=== PATIENT | female | born 1970 ===

== ENCOUNTER 2020-01-11 11:12 | Emergency (ER) | payer BC ==
[~2020-01-11] VITALS: Ht 160 cm; Wt 73.6 kg
[2020-01-11 11:20] VITALS: TEMP 98.2
[2020-01-11] MEDS ORDERED: FLEXERIL 1010 MG/TAB PO (12:21)
[2020-01-11] MEDS ORDERED: ZESTRIL 10MG10 MG PO (12:21)
[2020-01-11 12:36] VITALS: BP 163/85; PULSE 80
== END 2020-01-11 12:41 | disposition home or self-care (01) ==
LOC: COL.ER 11:12
DX: M54.41 Lumbago with sciatica, right side (principal); R03.0 Elevated blood-pressure reading, without diagnosis of hypertension; I10 Essential (primary) hypertension; F41.9 Anxiety disorder, unspecified; F32.9 Major depressive disorder, single episode, unspecified; F17.210 Nicotine dependence, cigarettes, uncomplicated

== ENCOUNTER 2020-10-21 10:04 | Day surgery (SDC) | payer BC ==
[~2020-10-21] VITALS: Ht 160 cm; Wt 73.1 kg
[~2020-10-21 10:04] MED LIST: FLEXERIL 1010 MG/TAB PO; ZESTRIL 10MG10 MG PO
[2020-10-21 10:34] VITALS: BP 158/80; PULSE 58; TEMP 97.8
[2020-10-21] MEDS ORDERED: ABILIFY 15MG TA15 MG PO (10:50)
[2020-10-21] MEDS ORDERED: NORVASC 10MG10 MG PO (10:51)
[2020-10-21] MEDS ORDERED: LAMICTAL 25MG T25 MG PO (10:51)
[2020-10-21] MEDS ORDERED: HCTZ 25MG TAB25 MG PO (10:52)
[2020-10-21] MEDS ORDERED: SLOW FE142 MG PO (10:53)
[2020-10-21 12:40] VITALS: BP 156/97; PULSE 60; TEMP 97.3
--- NOTE | 2020-10-21 12:40 | NUR ---
Pt to [facility] via cart from ENDO. Pt awake and alert. Pt ambulates to recliner. Pt denies pain or nausea. Muffin and pepsi given per pt request. Will continue to monitor. Call light within reach.
[2020-10-21 12:55] VITALS: BP 153/95; PULSE 57
--- NOTE | 2020-10-21 12:55 | NUR ---
Pt continues to rest. Denies pain or nausea. Will continue to monitor.
[2020-10-21 13:10] VITALS: BP 170/85; PULSE 56
--- NOTE | 2020-10-21 13:10 | NUR ---
Pt continues to rest. into see pt. Call light within reach.
--- NOTE | 2020-10-21 13:20 | NUR ---
IV site discontinued with all parts intact. Discharge instructions reviewed. Pt voices understanding. Pt up to dress. Call light within reach.
--- NOTE | 2020-10-21 13:25 | NUR ---
Pt escorted to private car via wheel chair. Pt accompanied home by her son.
== END 2020-10-21 13:25 | disposition home or self-care (01) ==
LOC: SDCO 10:04
DX: K21.00 Gastro-esophageal reflux disease with esophagitis, without bleeding (principal); K92.0 Hematemesis; D50.0 Iron deficiency anemia secondary to blood loss (chronic); C7A.8 Other malignant neuroendocrine tumors; K64.1 Second degree hemorrhoids; D63.0 Anemia in neoplastic disease; I12.9 Hypertensive chronic kidney disease with stage 1 through stage 4 chronic kidney disease, or unspecified chronic kidney disease; D63.1 Anemia in chronic kidney disease; N18.9 Chronic kidney disease, unspecified; F20.9 Schizophrenia, unspecified; Z20.822 Contact with and (suspected) exposure to COVID-19; F31.9 Bipolar disorder, unspecified; F17.210 Nicotine dependence, cigarettes, uncomplicated; Z79.899 Other long term (current) drug therapy; Z91.040 Latex allergy status
CPT/HCPCS: J2704; J7120